=== PATIENT | male | born 2000 | race Hispanic/Latino ===

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

== ENCOUNTER 2021-01-09 11:52 | Emergency (ER) | payer MEDICAID, OTHER ==
[~2021-01-09] VITALS: Ht 167.6 cm; Wt 88.5 kg
== END 2021-01-09 15:34 | disposition left against medical advice (07) ==
LOC: EDH 11:52
DX: M54.9 Dorsalgia, unspecified (principal); Z53.21 Procedure and treatment not carried out due to patient leaving prior to being seen by health care provider

== ENCOUNTER 2021-02-13 02:02 | Emergency (ER) | payer OTHER ==
[~2021-02-13] VITALS: Ht 167.6 cm; Wt 98.0 kg
[2021-02-13 02:05] VITALS: BP 137/80
== END 2021-02-13 04:26 | disposition left against medical advice (07) ==
LOC: EDH 02:02
DX: R20.0 Anesthesia of skin (principal); Z53.21 Procedure and treatment not carried out due to patient leaving prior to being seen by health care provider

== ENCOUNTER 2024-12-28 16:07 | Emergency (ER) | payer SELFPAY ==
[~2024-12-28] VITALS: Ht 172.7 cm; Wt 72.6 kg
[2024-12-28] MEDS: ORPHENADRINE 60MG/2ML IM STA (16:57)
[2024-12-28] MEDS: TRIAMCINOLONE ACETONIDE 40 MG/ML 1ML VIAL IM ONE (16:58)
[2024-12-28] MEDS: LIDOCAINE 4% ADH..PATCH TP STA (16:58)
--- NOTE | 2024-12-28 17:34 | HMCIMG ---
EXAM: CR Lumbar Spine, 3 View. CLINICAL HISTORY: back pain , fall COMPARISON: None provided. FINDINGS: BONES: No acute fracture or aggressive appearing osseous lesion. ALIGNMENT: Alignment is within normal limits. No significant scoliosis. DISCS / DEGENERATIVE CHANGES: The disc spaces are preserved. SOFT TISSUES: The soft tissues are unremarkable. IMPRESSION: No acute lumbar spine abnormality evident. /[place]
[2024-12-28] MEDS ORDERED: METH100054 PO (17:41)
[2024-12-28] MEDS ORDERED: LIDO1ADH82 TP (17:41)
--- NOTE | 2024-12-28 17:42 | ERN ---
ED Note History of Present Illness Stated Complaint: LOWER BACK PAIN S/P FALL Chief Complaint: Back Pain or Injury Time Seen by MD: 16:12 Time Seen by Midlevel: 16:15 Dictation: 24-year-old male states he slipped and fell when he was trying to get in the shower landed on his back. Denies any of the head injury. Denies any LOC or blood thinners. Complaining of lower back pain. Denies any numbness tingling saddle paresthesias. Denies any incontinence. Allergies: Coded Allergies: No Known Allergies (Unverified Allergy, Unknown, 01/09/21) Past Medical History Past Medical History: No Pertinent History Surgical History: None Review of System Dictation Constitutional: Negative for fever,chills, and weight loss Eyes: Negative for injury, pain,redness, and discharge ENT: Negative for injury,pain or swelling Cardiovascular: Negative for chest pain, palpitations, and edema Respiratory: Negative for shortness of breath, cough, and wheezing, Abdomen/GI: Negative for abdominal pain, nausea, vomiting, diarrhea, and consti pation Back: Complaining of back pain : Negative for injury, bleeding and discharge MS/Extremity: Negative for injury and deformity Skin: Negative for rash, and discoloration Neuro: Negative for headache, weakness, numbness, tingling, and seizure Psych: Negative for suicide ideation, homicidal ideation, and hallucinations Review of Systems: was completed Initial Vital Sign VS Vital Signs Date Time Temp Pulse Resp B/P (MAP) Pulse Ox O2 Delivery O2 Flow Rate FiO2 12/28/24 16:10 98.4 65 18 122/82 99 Room Air 0 12/28/24 16:48 21 Physical Exam Dictation General: awake, alert, NAD Head/Face: Normocephalic, atraumatic Eyes: PERRL, EOMI, vision at baseline ENT: oral cavity clear, TMs clear, no signs of infection Neck: Trachea midline, supple, no nuchal rigidity Cardiovascular: RRR, normal S1/S2, No MRGs, no JVD Respiratory: CTAB, no respiratory distress, No rales or wheezes Abdomen: Soft, non-tender, non-distended, normal bowel sounds, no guarding or rebound. Skin: Warm, dry, normal turgor, no rash MS/Extremity: Pulses equal, no cyanosis, neurovascular intact, FROM Neuro: COAx4, GCS 15, strength 5/5, CN 2-12 intact, normal cerebellar exam, normal gait, Psych: Normal behavior, mood, and affect normal Results (Laboratory/Radiology) X-RAY Comment: [facility] [address] [place] [address] IMAGING REPORT Signed PATIENT: CYN DAWKINS MR#: [id number] : 2000 SEX: M AGE: 24 LOCATION: [facility] ORDER 15 STATUS: REG ER REPORT#: [id number] SERVICE 13 REASON: back pain , fall ORDERING PHYSICIAN: NEMO CANCHOLA NP PROCEDURE: LUMB 2 3VW - LUMBAR SPINE 2-3VWS EXAM: CR Lumbar Spine, 3 View. CLINICAL HISTORY: back pain , fall COMPARISON: None provided. FINDINGS: BONES: No acute fracture or aggressive appearing osseous lesion. ALIGNMENT: Alignment is within normal limits. No significant scoliosis. DISCS / DEGENERATIVE CHANGES: The disc spaces are preserved. SOFT TISSUES: The soft tissues are unremarkable. IMPRESSION: No acute lumbar spine abnormality evident. /[place] DICTATED BY: ELVA GARCIA Jr., MD DATE: 12/28/241832 ELECTRONICALLY SIGNED BY: ELVA GARCIA Jr., MD DATE: 12/28/241832 ED Course ED Course Orders Procedure Category Date Status Time Lumbar Spine 2-3vws RAD 12/28/24 Resulted 16:14 Triamcinolone Acet PHA 12/28/24 Complete 40mg/Ml 1ml (Kenalog 16:30 Orphenadrine Citrate PHA 12/28/24 Complete (Norflex) 16:14 Ketorolac PHA 12/28/24 Complete Tromethamine 15mg/Ml 16:14 Lidocaine (Lidocaine PHA 12/28/24 Complete Patch 4%) 16:14 Current Medications Medications (Trade) Dose Ordered Sig/Sandeep Route PRN Reason Start Time Stop Time Status Last Admin Dose Admin Ketorolac Tromethamine (toRADol) 15 mg ONCE STAT IM 12/28/24 16:14 12/28/24 16:18 DC Lidocaine (Lidocaine Patch 4%) 1 each ONCE STAT TP 12/28/24 16:14 12/28/24 16:18 DC 12/28/24 17:05 Orphenadrine Citrate (Norflex) 60 mg ONCE STAT IM 12/28/24 16:14 12/28/24 16:18 DC Triamcinolone Acetonide (Kenalog 40) 40 mg ONCE ONCE IM 12/28/24 16:30 12/28/24 16:31 DC Vital Signs Date Time Temp Pulse Resp B/P (MAP) Pulse Ox O2 Delivery O2 Flow Rate FiO2 12/28/24 16:48 98.4 65 18 122/82 99 Room Air* 0 21 12/28/24 16:10 98.4 65 18 122/82 99 Room Air 0 Medical Decision Making MDM MDM: 24-year-old male states he slipped and fell when he was trying to get in the shower landed on his back. Denies any of the head injury. Denies any LOC or blood thinners. Complaining of lower back pain. Denies any numbness tingling saddle paresthesias. Denies any incontinence. X-ray shows no acute findings. Patient refused IM injections here in the ER. Patient states he would rather just take the prescriptions home. Discussed with the patient to follow up with PCP in one to return back to the ER. Patient verbalized understanding, answered all questions. Differential diagnosis: Back contusion, muscle spasm, muscle strain Rationale: Tests considered and ordered secondary to shared decision making include: Previous outside records reviewed: Old ER visits. Risk of complication and/or morbidity or mortality of patient management: None Medications-Per medication reconciliation Need for hospitalization: Patient does not meet criteria for hospitalization. Need for emergency major/minor surgery: No There are no social concerns with this patient. Prescription drug management Prescriptions will include symptomatic care Patient's prior external medical records from other ER visits were reviewed by me as indicated. Prior testing and results from previous visits were reviewed. Prior tests were taken into account with medical decision making and resource utilization, independent historian/historians were used to obtain complete medical history. I independently interpreted the test that were performed, results were reviewed by me and considered findings on radiology if ordered. Medical management and examination interpretation discussions were had by me with other qualified healthcare professionals as indicated for the patient's care. DX & DISP Disposition: Discharge Departure Impression: Primary Impression: Back pain Condition: Stable Scripts Methocarbamol (Methocarbamol) 1,000 Mg Tablet 1000 MG PO TID for 7 Days, #21 TAB Prov: NEMO CANCHOLA NP 12/28/24 Lidocaine (Lidocaine) 4 % Adh..patch 1 PATCH TP DAILY for 10 Days, #10 PATCH 0 Refills Prov: NEMO CANCHOLA NP 12/28/24 Additional Instructions: Take medications as prescribed. Also you can add Tylenol or ibuprofen to your pain medication. Return to the hospital if you have any worsening symptoms. Referrals: SELF,REFERRAL (PCP) Time of Disposition: 17:41 I have reviewed the case, and I agree with, Diagnosis and Plan NEMO CANCHOLA NP Dec 28, 2024 17:42
[2024-12-28 18:15] VITALS: BP 127/78; PULSE 62; RESP 18; TEMP 98.4; O2SAT 99
== END 2024-12-28 18:15 | disposition home or self-care (01) ==
LOC: EDH 16:07
DX: M54.50 Low back pain, unspecified (principal); W01.0XXA Fall on same level from slipping, tripping and stumbling without subsequent striking against object, initial encounter; Y93.89 Activity, other specified; Y92.89 Other specified places as the place of occurrence of the external cause; Y99.8 Other external cause status
CPT/HCPCS: 72100; 99283; J1885; J3301; J2360